=== PATIENT | female | born 1970 | race Caucasian/White ===

== ENCOUNTER → 2022-01-21 | Day surgery (SDC) | payer OTHER ==
[~2022-01-21] VITALS: Ht 167.6 cm; Wt 61.2 kg
[~2022-01-21] MED LIST: CLARITIN10 MG PO; DAILY VALUE1 EACH PO; FLONASE ALLER15.8 ML; VITAMIN D325 MC1 PO
== END | disposition home or self-care (01) ==
LOC: FAS 10:51
DX: M75.02 Adhesive capsulitis of left shoulder (principal)
CPT/HCPCS: J1040; J1100; J2250; J2704; J2795; J7120